=== PATIENT | female | born 1960 | race Caucasian/White ===

== ENCOUNTER 2017-07-08 20:04 | Emergency (ER) | payer OTHER ==
[~2017-07-08] VITALS: Ht 160 cm; Wt 89.4 kg
--- NOTE | ~2017-07-08 | EKG ---
[place] [address] [facility] [place] [address] ELECTROCARDIOGRAM REPORT Name: NIKHIL MURPHY Room #: DEP ALONZO Alves#: [id number] Admission: 07/08/17 Attend Phys: Discharge: 07/08/17 Date of : 56 Report #: [id number] THIS REPORT FOR: //name// [facility] ED Test Date: 2017-07-08 Test Time: 20:37:17 Pat Name: NIKHIL MURPHY Department: Room: Gender: F [employer] Supervisor: : [id number] Requested By: Fran Logan Order Number: [id number] MD: Hieu Guillen Measurements Intervals [place] Rate: 76 P: 38 MS: 173 QRS: 11 QRSD: 95 T: 20 QT: 389 QTc: 438 Interpretive Statements Sinus rhythm Normal tracing Baseline wander in lead(s) V1 No previous ECG available for comparison Electronically Signed On 07-09-2017 8:49:44 CDT by Hieu Guillen [email or web address] <ELECTRONICALLY SIGNED> By: Hieu Guillen MD, [facility] 07/09/17 0849 2037 36 Hieu Guillen MD, FACC /EPI
[2017-07-08 21:29] VITALS: BP 134/86
== END 2017-07-08 21:30 | disposition home or self-care (01) ==
LOC: ER 20:04
DX: R07.89 Other chest pain (principal); I10 Essential (primary) hypertension; Z88.0 Allergy status to penicillin; V89.2XXA Person injured in unspecified motor-vehicle accident, traffic, initial encounter; Y93.89 Activity, other specified; Y92.89 Other specified places as the place of occurrence of the external cause; Y99.8 Other external cause status

== ENCOUNTER → 2017-07-16 | Outpatient (CLI) | payer OTHER | LOC: RAD 10:41 | DX: S92.912A Unspecified fracture of left toe(s), initial encounter for closed fracture (principal); R07.81 Pleurodynia; X58.XXXA Exposure to other specified factors, initial encounter; Y93.89 Activity, other specified; Y92.89 Other specified places as the place of occurrence of the external cause; Y99.8 Other external cause status ==

== ENCOUNTER → 2018-01-09 | Outpatient (CLI) | payer OTHER | LOC: RAD 01:04 | DX: N64.1 Fat necrosis of breast (principal) ==

== ENCOUNTER → 2018-08-10 | Outpatient (CLI) | payer OTHER | LOC: ULTRA 01:34 | DX: N60.01 Solitary cyst of right breast (principal); I10 Essential (primary) hypertension ==

== ENCOUNTER → 2018-11-26 | Outpatient (CLI) | payer OTHER | LOC: ULTRA 01:40 | DX: N60.01 Solitary cyst of right breast (principal) ==

== ENCOUNTER → 2019-06-17 | Outpatient (CLI) | payer OTHER | LOC: RAD 09:19 | DX: N63.20 Unspecified lump in the left breast, unspecified quadrant (principal) ==

== ENCOUNTER → 2019-06-17 | Outpatient (CLI) | payer OTHER | LOC: CAT 10:31 | DX: Z13.6 Encounter for screening for cardiovascular disorders (principal); E78.00 Pure hypercholesterolemia, unspecified; I25.10 Atherosclerotic heart disease of native coronary artery without angina pectoris ==

== ENCOUNTER → 2019-06-18 | Outpatient (CLI) | payer OTHER | LOC: ULTRA 15:08 | DX: N63.11 Unspecified lump in the right breast, upper outer quadrant (principal) ==

== ENCOUNTER → 2020-09-06 | Outpatient (CLI) | payer OTHER | LOC: BC 08:52 | PROVIDERS: ATTEND Specialist | DX: Z12.31 Encounter for screening mammogram for malignant neoplasm of breast (principal) ==

== ENCOUNTER → 2021-03-09 | Outpatient (CLI) | payer OTHER | LOC: NUC 08:52 | PROVIDERS: ATTEND Specialist | DX: M85.88 Other specified disorders of bone density and structure, other site (principal); Z78.0 Asymptomatic menopausal state ==

== ENCOUNTER → 2021-10-12 | Outpatient (CLI) | payer OTHER | LOC: RAD 15:57 | PROVIDERS: ATTEND Family Medicine | DX: Z12.31 Encounter for screening mammogram for malignant neoplasm of breast (principal) ==